=== PATIENT | male | born 1975 | race Caucasian/White ===

== ENCOUNTER 2017-12-01 07:38 | Emergency (ER) | payer SELFPAY ==
[~2017-12-01] VITALS: Ht 175.3 cm; Wt 73.8 kg
[2017-12-01 11:03] VITALS: BP 96/52
== END 2017-12-01 11:21 | disposition home or self-care (01) ==
LOC: ED 11:00
DX: S00.83XA Contusion of other part of head, initial encounter (principal); M27.2 Inflammatory conditions of jaws; X58.XXXA Exposure to other specified factors, initial encounter; Y93.89 Activity, other specified; Y92.410 Unspecified street and highway as the place of occurrence of the external cause; Y99.8 Other external cause status
CPT/HCPCS: 70450; 70486; 99284